=== PATIENT | female | born 1960 | race Caucasian/White ===

== ENCOUNTER → 2019-05-05 | Outpatient (CLI) | payer OTHER ==
--- NOTE | 2019-05-05 15:01 | KCIC ---
MR of the right ankle HISTORY: Right knee pain. Positive Bharti's. TECHNIQUE: Routine multiplanar sequences are obtained. FINDINGS: Full-thickness tear at the posterior root attachment of the medial meniscus. Mild medial subluxation of the medial meniscus. Degenerative tear of the lateral meniscus. The anterior and posterior cruciate ligaments are intact. Medial collateral ligament is intact. Iliotibial band unremarkable. Fibular collateral ligament, biceps femoris tendon and popliteus tendon are intact. Extensor mechanism is intact. Moderate joint effusion. Moderate Castillo's cyst. There is mild fluid signal just below the cyst compatible with rupture or leakage. There is also mild edema/fluid above the cyst. Moderate to severe chondral loss at the medial joint compartment with mild subchondral marrow edema. Chondral thinning at the lateral joint, severe at the posterior aspect. Patellofemoral joint chondromalacia. No aggressive bone destruction. No acute fracture. IMPRESSION: 1. Tear at the posterior root attachment medial meniscus with medial subluxation. 2. Primary osteoarthritis. 3. Moderate Castillo's cyst with rupture/leakage. 4. Lateral meniscal degenerative tear. Electronically signed by: Kelvin Gallego MD (05/05/2019 2:58 PM) [id number]
== END | disposition home or self-care (01) ==
LOC: KCIC MRI 12:06
PROVIDERS: ATTEND Orthopaedic Surgery
DX: S83.191A Other subluxation of right knee, initial encounter (principal); S83.281A Other tear of lateral meniscus, current injury, right knee, initial encounter; S83.241A Other tear of medial meniscus, current injury, right knee, initial encounter; M94.261 Chondromalacia, right knee; M25.461 Effusion, right knee; M17.11 Unilateral primary osteoarthritis, right knee; M66.0 Rupture of popliteal cyst; X58.XXXA Exposure to other specified factors, initial encounter; Y93.89 Activity, other specified; Y92.89 Other specified places as the place of occurrence of the external cause; Y99.8 Other external cause status
CPT/HCPCS: 73721